=== PATIENT | male | born 1950 | race African-American/Black ===

== ENCOUNTER → 2019-07-03 | Day surgery (SDC) | payer MEDICARE ==
[~2019-07-03] MED LIST: AMLO10TA8 PO; HYDR-2145 PO; IPRATRPIUM/ALBUTEROL 0.5/2.5MG 3 ML NEBU. NEB PRN; IV RINGERS SOLUTION,LACTATED 1,000 ML IV SCH; LOSA100T14 PO; ONDANSETRON PF 4 MG/2 ML VIAL. IV PRN; PROPOFOL 40 ML IV ONE
[2019-07-03 11:54] VITALS: BP 138/89
--- NOTE | 2019-07-06 13:07 | PATHOLOGY ---
[facility] Accession Number: [id number] . 01 Material submitted: . colon - ASCENDING COLON POLYP. Modifiers: ascending . 01 Clinical history: . None provided . 02 Diagnosis: Colon biopsy, ascending colon polyp: - Tubular adenoma. (JPM:kelli; 07/06/2019) QMS 07/06/2019 0905 Local . 02 Comment: There is no high grade dysplasia or evidence of malignancy. . 02 Electronically signed: . Raphael Urbina MD, Pathologist NPI- [id number] . 01 Gross description: . The specimen is received in formalin, labeled "Tad Sparrow, ascending colon polyp" and consists of a fragment of pink-floyd tissue measuring 0.3 x 0.2 x 0.1 cm which is entirely submitted in A1. (SDY; 07/03/2019) SYU/SYU 07/03/2019 1906 Local . 02 Pathologist provided ICD-10: D12.2 . 02 CPT . 131335 Specimen Comment: A courtesy copy of this report has been sent to [phone], [phone] Specimen Comment: [phone] Specimen Comment: Report sent to Specimen Comment: Report sent to / DR SCHMIDT Performed at: 01 [facility] [address], [place], [place] [id number] MD Isai Chavarria MD Phone: [phone] Performed at: 02 [facility] [address], [place] [id number] MD Raphael Urbina MD Phone: [phone]
== END ==
LOC: SURG 09:34
PROVIDERS: ATTEND Internal Medicine Gastroenterology
DX: Z12.11 Encounter for screening for malignant neoplasm of colon (principal); D12.2 Benign neoplasm of ascending colon; K57.30 Diverticulosis of large intestine without perforation or abscess without bleeding; K64.0 First degree hemorrhoids; I10 Essential (primary) hypertension; Z87.39 Personal history of other diseases of the musculoskeletal system and connective tissue
CPT/HCPCS: 45381; 45385; 88305; J2704; J7120